=== PATIENT | male | born 1985 | race African-American/Black ===

== ENCOUNTER 2025-03-28 11:05 | Emergency (ER) | payer OTHER ==
[2025-03-28] MEDS ORDERED: Lidocaine 1% w/Epinephrine 1:100K 20 ML VIAL ONE (11:49)
[2025-03-28] MEDS ORDERED: Bacitracin 1 PK ONE (12:34)
== END 2025-03-28 13:00 ==
LOC: EEVIPCON 11:05 → ERS 11:05
DX: L02.413 Cutaneous abscess of right upper limb (principal); L03.113 Cellulitis of right upper limb; I10 Essential (primary) hypertension; Z79.899 Other long term (current) drug therapy
CPT/HCPCS: 10060